=== PATIENT | female | born 1960 | race Caucasian/White ===

== ENCOUNTER 2017-01-16 09:54 | Inpatient (IN) | payer OTHER, MEDICARE ==
[2017-01-16 10:40] LABS: CHLORIDE,CL 94 mmol/L (98-115); SODIUM,NA 140 mmol/L (136-145)
[2017-01-16] MEDS ORDERED: Ondansetron 4 MG/2 ML SDV IVPUSH PRN (12:55)
[2017-01-16] MEDS ORDERED: Acetaminophen 325 MG Tab PO PRN (12:55)
[2017-01-16] MEDS ORDERED: Docusate Sodium 100 MG Cap PO PRN (12:55)
[2017-01-16] MEDS ORDERED: Sodium Chloride 0.9% 1,000 ML IV SCH ×2 (13:00→15:30)
[2017-01-16] MEDS ORDERED: Albuterol 8 GM Inhaler INH PRN (13:11)
[2017-01-16] MEDS ORDERED: Albuterol/Ipratropium 3.0-0.5 MG/3 ML Neb Soln INH PRN (13:11)
[2017-01-16] MEDS ORDERED: cefTRIAXone 1 GM in Sodium Chloride 0.9% 50 ML IV SCH (13:15)
[2017-01-16] MEDS ORDERED: prednisoLONE Acetate 1% Ophth Susp 5 ML Bottle EYEBOTH SCH (13:15)
[2017-01-16] MEDS ORDERED: Tobramycin 0.3% Ophth Drops 5 ML Bottle EYEBOTH SCH (13:15)
[2017-01-16] MEDS ORDERED: Azithromycin 500 MG in Sodium Chloride 0.9% 250 ML IV SCH (14:00)
[2017-01-16] MEDS: cefTRIAXone 1 GM Vial IVPUSH SCH (15:10)
[2017-01-16] MEDS: methylPREDNISolone Sodium Succinate 125 MG/2 ML SDV IVPUSH SCH ×4 (15:30→21:11)
[2017-01-16] MEDS: Albuterol/Ipratropium 3.0-0.5 MG/3 ML Neb Soln NEB SCH ×4 (15:32→22:37)
[2017-01-16] MEDS: Omeprazole 20 MG Cap.CR PO SCH (18:26)
[2017-01-16] MEDS: Multivitamins with Minerals/Iron/Folic Acid/Lycopene Tab PO SCH (18:26)
[2017-01-16] MEDS: metFORMIN 500 MG Tab PO SCH (18:26)
[2017-01-16] MEDS: Rosuvastatin 10 MG Tab PO SCH (20:35)
[2017-01-16] MEDS: SYMBICORT INH SCH (20:36)
[2017-01-16] MEDS: Potassium Chloride 20 MEQ Tab.ER PO SCH (20:36)
[2017-01-16] MEDS: Tiotropium Inhaler 18 MCG Inhalation Powder Cap Kit of 5 INH SCH (23:34)
[2017-01-17] MEDS: Melatonin 3 MG Tab PO PRN ×2 (00:37→22:42)
[2017-01-17] MEDS: methylPREDNISolone Sodium Succinate 125 MG/2 ML SDV IVPUSH SCH ×2 (03:23→08:44)
[2017-01-17] MEDS: Albuterol/Ipratropium 3.0-0.5 MG/3 ML Neb Soln NEB SCH ×5 (03:23→22:34)
[2017-01-17] MEDS: Levothyroxine 100 MCG Tab PO SCH (06:48)
[2017-01-17] MEDS: Omeprazole 20 MG Cap.CR PO SCH ×2 (06:48→18:19)
[2017-01-17] MEDS: Levothyroxine 25 MCG Tab PO SCH (06:49)
[2017-01-17 07:44] LABS: CHLORIDE,CL 98 mmol/L (98-115); SODIUM,NA 141 mmol/L (136-145)
[2017-01-17] MEDS: SYMBICORT INH SCH ×2 (08:36→21:26)
[2017-01-17] MEDS: [UNRECOGNIZED DRUG - OTHER] PO SCH (08:36)
[2017-01-17] MEDS: Potassium Chloride 20 MEQ Tab.ER PO SCH ×2 (08:38→21:24)
[2017-01-17] MEDS: Furosemide 20 MG Tab PO SCH (08:38)
[2017-01-17] MEDS: metFORMIN 500 MG Tab PO SCH ×2 (08:38→18:20)
[2017-01-17] MEDS: Cetirizine 10 MG Tab PO SCH (08:39)
[2017-01-17] MEDS: Vitamin B Complex Tab PO SCH (08:39)
[2017-01-17] MEDS ORDERED: Non-Formulary Medication 1 Each (Biotin [Biotin] 5,000 MCG) PO SCH (09:00)
[2017-01-17] MEDS ORDERED: Tiotropium Inhaler 18 MCG Inhalation Powder Cap Kit of 5 INH SCH (09:00)
--- NOTE | 2017-01-17 09:57 | PCM.DCSUM1 ---
Discharge Summary - Hospital Course HPI Initial Comments: 56 YO WF presented to ER with hypoxia. Pt was found to have a left upper lobe infiltrate consistant with pneumonia. Pt also had underlying CHF. Pt is O2 dependent and is usually on 2L of oxygen daily. Pt was weaned from 3L while in the hospital back to 2L yesterday and tolerated well. Pt was given IV rocephin/ vancomycin, duoneb treatment Q4 hours and lasix 20mg IV x 2 doses and has improved significantly. Pt was able to shower this am without difficulty and states she's feeling much better. Pt had her coumadin held x 1 day due to elevated INR-3.7 and is currently at 3.0. Coumadin will be restarted today. Pt had KCL 40MEQ replaced due to hypokalemia and today K- 3.7. Pt will be discharged on omnicef 300mg PO BID x 10 days and continue duoneb treatments Q6 hours and PRN. All her home medications will be restarted. Pt will return to [place] today for further management. - Discharge Data Discharge Date: 01/17/17 Discharge Disposition: Home, Self-Care 01 Condition: Good - Patient Summary/Data Consults: Consultations 01/16/17 12:55 Respiratory Care Assess and Treatment [CONS] Routine - Patient Instructions Diet: Low Sodium Fluid Restriction: 1500 mL Activity: As Tolerated Showering/Bathing: March Shower Notify Provider of: Fever - Discharge Plan Prescriptions/Med Rec: Cefdinir [Omnicef] 300 mg PO BID #20 cap Home Medications: Home Meds Albuterol Sulfate [Proair Hfa] 2 puff INH Q4H PRN 10/17/16 [History] Biotin 5,000 mcg PO DAILY 10/17/16 [History] Budesonide/Formoterol Fumarate [Symbicort 80-4.5 Mcg Inhaler] 2 puff INH BID 01/01 [History] Calcium Carbonate/Vitamin D3 [Calcium 600 + Vit D Tablet] 2 each PO BID [History] Cetirizine [ZyrTEC] 10 mg PO DAILY 10/17/16 [History] Folic Acid/Multivit-Min/Lutein [Centrum Silver Chewable Tablet] 2 each PO BID [History] Furosemide [Lasix] 20 mg PO DAILY 10/17/16 [History] Ipratropium/Albuterol Sulfate [Iprat-Albut 0.5-3(2.5) MG/3 ML] 1 vial INH Q4H PRN 10/17/16 [History] Levothyroxine 112 mcg PO ASDIRECTED 10/17/16 [History] Levothyroxine Sodium [Synthroid] 125 mcg PO ASDIRECTED 10/17/16 [History] MV,Ca,Min/FA/Herbal No.157 [Estroven Max Strength Caplet] 400 mcg PO DAILY 10/17 [History] Omeprazole 40 mg PO BID 10/17/16 [History] Potassium Chloride 1 tab PO BID 10/17/16 [History] Ranitidine [Zantac] 150 mg PO BEDTIME PRN 10/17/16 [History] Rosuvastatin Calcium 5 mg PO DAILY 10/17/16 [History] Tiotropium [Spiriva HandiHaler] 18 mcg INH DAILY 10/17/16 [History] Tobramycin 0.3% [Tobramycin 0.3% Ophth Soln] 1 drop EYEBOTH ASDIRECTED 10/17/16 [History] Vitamin B Complex 1 each PO BID 10/17/16 [History] metFORMIN HCl [Metformin HCl] 500 mg PO BID 10/17/16 [History] prednisoLONE Acetate [Pred Forte 1% Ophth Susp] 1 drop EYEBOTH ASDIRECTED [History] Tumeric 1 cap PO DAILY 01/16/17 [History] Cefdinir [Omnicef] 300 mg PO BID #20 cap 01/17/17 [Rx] Patient Handouts: Community-Acquired Pneumonia, Adult, Shortness of Breath, Heart Failure Referrals: Kristy Jones MD [Primary Care Provider] - - Discharge Summary/Plan Comment DC Time >30 min.: No Discharge Summary/Plan Comment: 1. CAP- omnicef 300mg PO BID x 10 days; duoneb treatments Q6 and PRN 2. CHF exacerbation- continue home lasix 3. hypoxemia- continue O2 at 2L 4. return to [place] today 5. follow up with Dr Rodriguez thursday01/23/2017 for further evaluation and treatment - Patient Data Vitals - Most Recent: Last Vital Signs Temp 36.6 C 01/17/17 05:57 Pulse 88 01/17/17 06:54 Resp 20 01/17/17 05:57 BP 110/66 01/17/17 05:57 Pulse Ox 94 L 01/17/17 06:54 Weight - Most Recent: 56.88 kg I&O - Last 24 hours: Intake & Output 01/16/17 01/17/17 01/17/17 22:59 06:59 14:59 Intake Total 1390 1011 Output Total 1500 1800 Balance -110 -789 Lab Results - Last 24 hrs: Laboratory Results - last 24 hr 01/16/17 01/16/17 01/16/17 Range/Units 10:10 10:10 17:59 WBC 16.4 H (5.0-10.0) 10^3/uL RBC 4.94 (3.80-5.50) 10^6/uL Hgb 13.3 (12.0-16.0) g/dL Hct 41.6 (37.0-47.0) % MCV 84.1 (82.0-92.0) fL MCH 26.9 L (27.0-31.0) pg MCHC 31.9 L (32.0-36.0) g/dL RDW 12.1 (11.5-14.5) % Plt Count 555 H (150-300) 10^3/uL MPV 7.3 L (7.4-10.4) fL Neut % (Auto) 80.2 H (50.0-70.0) % Lymph % (Auto) 13.6 L (20.0-40.0) % [place] % (Auto) 5.1 (2.0-8.0) % Eos % (Auto) 1.1 (1.0-3.0) % Baso % (Auto) 0.0 (0.0-1.0) % Neut # 13.2 H (2.5-7.0) 10^3/uL Lymph # 2.2 (1.0-4.0) 10^3/uL [place] # 0.8 (0.1-0.8) 10^3/uL Eos # 0.2 (0.1-0.3) 10^3/uL Baso # 0.0 (0.0-0.1) 10^3/uL Sodium 140 (136-145) mmol/L Potassium 4.9 (3.3-5.3) mmol/L Chloride 94 L (98-115) mmol/L Carbon Dioxide 46.4 H (21.0-32.0) mmol/L BUN 16 (6-25) mg/dL Creatinine 0.58 (0.51-1.17) mg/dL Est Cr Clr Drug Dosing 98.97 mL/min Estimated GFR (MDRD) > 60 mL/min Glucose 185 H (70-110) mg/dL POC Glucose 146 H (74-106) mg/dl Calcium 9.7 (8.7-10.3) mg/dL B-Natriuretic Peptide 8 (0-100) pg/mL 01/17/17 01/17/17 01/17/17 Range/Units 06:46 07:15 07:15 WBC 8.3 (5.0-10.0) 10^3/uL RBC 4.56 (3.80-5.50) 10^6/uL Hgb 12.5 (12.0-16.0) g/dL Hct 38.5 (37.0-47.0) % MCV 84.5 (82.0-92.0) fL MCH 27.4 (27.0-31.0) pg MCHC 32.4 (32.0-36.0) g/dL RDW 12.5 (11.5-14.5) % Plt Count 457 H (150-300) 10^3/uL MPV 7.2 L (7.4-10.4) fL Neut % (Auto) 89.0 H (50.0-70.0) % Lymph % (Auto) 9.1 L (20.0-40.0) % [place] % (Auto) 0.9 L (2.0-8.0) % Eos % (Auto) 0.2 L (1.0-3.0) % Baso % (Auto) 0.8 (0.0-1.0) % Neut # 7.3 H (2.5-7.0) 10^3/uL Lymph # 0.8 L (1.0-4.0) 10^3/uL [place] # 0.1 (0.1-0.8) 10^3/uL Eos # 0.0 L (0.1-0.3) 10^3/uL Baso # 0.1 (0.0-0.1) 10^3/uL Sodium 141 (136-145) mmol/L Potassium 4.3 (3.3-5.3) mmol/L Chloride 98 (98-115) mmol/L Carbon Dioxide 43.1 H (21.0-32.0) mmol/L BUN 13 (6-25) mg/dL Creatinine 0.47 L (0.51-1.17) mg/dL Est Cr Clr Drug Dosing 117.16 mL/min Estimated GFR (MDRD) > 60 mL/min Glucose 175 H (70-110) mg/dL POC Glucose 163 H (74-106) mg/dl Calcium 9.0 (8.7-10.3) mg/dL B-Natriuretic Peptide (0-100) pg/mL DENISE Results - Last 24 hrs: Microbiology 01/16/17 14:45 Gram Stain - Final Sputum - Expectorated Med Orders - Current: Current Medications Acetaminophen (Tylenol) 650 mg PO Q4H PRN PRN Reason: Pain (Mild 1-3)/fever Albuterol (Ventolin Hfa) 0 gm INH Q4H PRN PRN Reason: Shortness of Breath Albuterol/Ipratropium (Duoneb 3.0-0.5 Mg/3 Ml) 3 ml NEB Q4HR ON LICENSE OF [facility] Last Admin: 01/17/17 06:50 Dose: 3 ml Calcium Citrate (Calcium Citrate + D) 2 tab PO DAILY@1200 HARPAL Ceftriaxone Sodium (Rocephin) 1 gm IVPUSH Q24H ON [facility] OF [facility] Last Admin: 01/16/17 15:10 Dose: 1 gm Cetirizine HCl (Zyrtec) 10 mg PO DAILY ON [facility] Last Admin: 01/17/17 08:39 Dose: 10 mg Furosemide (Lasix) 20 mg PO DAILY ON [facility] Last Admin: 01/17/17 08:38 Dose: 20 mg Azithromycin 500 mg/ Sodium (Chloride) 250 mls @ 250 mls/hr IV Q24H ON [facility] OF [facility] Last Admin: 01/16/17 15:33 Dose: 250 mls/hr Sodium Chloride (Normal Saline) 1,000 mls @ 50 mls/hr IV ASDIRECTED ON LICENSE OF [facility] Last Admin: 01/16/17 15:31 Dose: 50 mls/hr Levothyroxine Sodium (Synthroid) 100 mcg PO SuSa@0700 ON [facility] OF [facility] Last Admin: 01/17/17 06:48 Dose: 100 mcg Levothyroxine Sodium (Levothyroxine) 112 mcg PO MoTuWeThFr@0700 ON [facility] Levothyroxine Sodium (Levothyroxine) 25 mcg PO SuSa@0700 ON [facility] Last Admin: 01/17/17 06:49 Dose: 25 mcg Melatonin (Melatonin) 6 mg PO BEDTIME PRN PRN Reason: Insomnia Last Admin: 01/17/17 00:37 Dose: 6 mg Metformin HCl (Glucophage) 500 mg PO BIDMEALS ON [facility] Last Admin: 01/17/17 08:38 Dose: 500 mg Multivitamins/Minerals (Centrum) 1 tab PO BID@1200,1800 ON [facility] Last Admin: 01/16/17 18:26 Dose: 1 tab Omeprazole (Omeprazole) 40 mg PO BIDAC ON [facility] OF [facility] Last Admin: 01/17/17 06:48 Dose: 40 mg Ondansetron HCl (Zofran) 4 mg IVPUSH Q6H PRN PRN Reason: Nausea/Vomiting Ptom Symbicort (160/4.5mcg Hfa) 0 each INH BID ON [facility] OF [facility] Last Admin: 01/17/17 08:36 Dose: 2 each Ptom Estroven (Max Strength Tablet) 1 each PO DAILY ON [facility] OF [facility] Last Admin: 01/17/17 08:36 Dose: 1 each Potassium Chloride (Klor-Con M20) 20 meq PO BID ON [facility] OF [facility] Last Admin: 01/17/17 08:38 Dose: 20 meq Ranitidine HCl (Zantac) 150 mg PO BEDTIME PRN PRN Reason: dyspepsia Rosuvastatin Calcium (Crestor) 5 mg PO BEDTIME ON [facility] Last Admin: 01/16/17 20:35 Dose: 5 mg Tiotropium [employer] (Spiriva Handihaler) 18 mcg INH 1600 ON [facility] Last Admin: 01/16/17 23:34 Dose: 1 inhalation Vitamin B Complex (Vitamin B Complex) 1 each PO DAILY ON [facility] Last Admin: 01/17/17 08:39 Dose: 1 each Discontinued Medications Albuterol/Ipratropium (Duoneb 3.0-0.5 Mg/3 Ml) 3 ml NEB Q4HRRT ON [facility] OF [facility] Last Admin: 01/16/17 19:27 Dose: Not Given Sodium Chloride (Normal Saline) 1,000 mls @ 50 mls/hr IV .BOLUS [facility]ARPAL Last Admin: 01/16/17 15:31 Dose: 50 mls/hr Methylprednisolone Sodium Succinate (Solu-Medrol) 125 mg IVPUSH Q6HR [facility] Stop: 01/17/17 05:01 Last Admin: 01/16/17 19:28 Dose: Not Given Methylprednisolone Sodium Succinate (Solu-Medrol) 125 mg IVPUSH 1500,2100,0300, 0900 [facility] Stop: 01/17/17 09:01 Last Admin: 01/17/17 08:44 Dose: 125 mg Tiotropium [employer] (Spiriva Handihaler) 18 mcg INH DAILY HARPAL *Q Meaningful Use (DIS) - VTE *Q VTE Criteria *Q: - Stroke *Q Stroke Criteria *Q: - AMI *Q AMI Criteria *Q:
[2017-01-17] MEDS ORDERED: Sodium Chloride 0.9% 5 ML Syringe FLUSH PRN (11:16)
[2017-01-17] MEDS: Azithromycin 250 MG Tab PO SCH (11:45)
[2017-01-17] MEDS: Calcium Citrate/Vitamin D3 315 MG-250 Unit Tab PO SCH (11:46)
[2017-01-17] MEDS: Multivitamins with Minerals/Iron/Folic Acid/Lycopene Tab PO SCH ×2 (11:46→18:19)
[2017-01-17] MEDS: cefTRIAXone 1 GM Vial IVPUSH SCH (14:08)
[2017-01-17] MEDS: Tiotropium Inhaler 18 MCG Inhalation Powder Cap Kit of 5 INH SCH (16:14)
[2017-01-17] MEDS ORDERED: Loperamide 2 MG Cap PO PRN (16:34)
[2017-01-17] MEDS: Rosuvastatin 10 MG Tab PO SCH (21:25)
[2017-01-18] MEDS: Albuterol/Ipratropium 3.0-0.5 MG/3 ML Neb Soln NEB SCH ×2 (04:28→10:57)
[2017-01-18] MEDS: Levothyroxine 25 MCG Tab PO SCH (06:23)
[2017-01-18] MEDS: Omeprazole 20 MG Cap.CR PO SCH (06:23)
[2017-01-18] MEDS: Levothyroxine 100 MCG Tab PO SCH (06:23)
[2017-01-18 06:27] VITALS: BP 121/67
--- NOTE | 2017-01-18 07:46 | PCM.DCSUM1 ---
Discharge Summary - Discharge Data Discharge Date: 01/18/17 Discharge Disposition: Home, Self-Care 01 Condition: Good - Patient Summary/Data Consults: Consultations 01/16/17 12:55 Respiratory Care Assess and Treatment [CONS] Routine Hospital Course: During hospital stay patient received duoneb treatments Q4 hours and PRN, solumedrol 125mg IV x 4 doses, rocephin and zithromax and supplemental O2. Pt states she is feeling much better today and is ready to be discharged home. Pt able to tolerate all her ADL's. Pt sitting up in a chair after showering in NAD. Pt will be discharged home on duoneb Q4 and prednisone 60mg po QD x 5 days. Pt was given zithromax 500mg QD x 3 days and antibiltics will be D/C'ed on discharge. - Patient Instructions Diet: Low Sodium Fluid Restriction: 1500 mL Activity: As Tolerated Driving: May Drive Today Showering/Bathing: May Shower Notify Provider of: Fever - Discharge Plan Prescriptions/Med Rec: Albuterol/Ipratropium [DuoNeb 3.0-0.5 MG/3 ML] 3 ml NEB Q4HRRT #30 neb Prednisone [IMW: predniSONE] 20 mg PO WITHBREAKFAST #15 tab Home Medications: Home Meds Albuterol Sulfate [Proair Hfa] 2 puff INH Q4H PRN 10/17/16 [History] Biotin 5,000 mcg PO DAILY 10/17/16 [History] Budesonide/Formoterol Fumarate [Symbicort 80-4.5 Mcg Inhaler] 2 puff INH BID 01/01 [History] Calcium Carbonate/Vitamin D3 [Calcium 600 + Vit D Tablet] 2 each PO BID [History] Cetirizine [ZyrTEC] 10 mg PO DAILY 10/17/16 [History] Folic Acid/Multivit-Min/Lutein [Centrum Silver Chewable Tablet] 2 each PO BID [History] Furosemide [Lasix] 20 mg PO DAILY 10/17/16 [History] Ipratropium/Albuterol Sulfate [Iprat-Albut 0.5-3(2.5) MG/3 ML] 1 vial INH Q4H PRN 10/17/16 [History] Levothyroxine 112 mcg PO ASDIRECTED 10/17/16 [History] Levothyroxine Sodium [Synthroid] 125 mcg PO ASDIRECTED 10/17/16 [History] MV,Ca,Min/FA/Herbal No.157 [Estroven Max Strength Caplet] 400 mcg PO DAILY 10/17 [History] Omeprazole 40 mg PO BID 10/17/16 [History] Potassium Chloride 1 tab PO BID 10/17/16 [History] Ranitidine [Zantac] 150 mg PO BEDTIME PRN 10/17/16 [History] Rosuvastatin Calcium 5 mg PO DAILY 10/17/16 [History] Tiotropium [Spiriva HandiHaler] 18 mcg INH DAILY 10/17/16 [History] Tobramycin 0.3% [Tobramycin 0.3% Ophth Soln] 1 drop EYEBOTH ASDIRECTED 10/17/16 [History] Vitamin B Complex 1 each PO BID 10/17/16 [History] metFORMIN HCl [Metformin HCl] 500 mg PO BID 10/17/16 [History] prednisoLONE Acetate [Pred Forte 1% Ophth Susp] 1 drop EYEBOTH ASDIRECTED [History] Tumeric 1 cap PO DAILY 01/16/17 [History] Albuterol/Ipratropium [DuoNeb 3.0-0.5 MG/3 ML] 3 ml NEB Q4HRRT #30 neb 01/18/17 [Rx] Prednisone [IMW: predniSONE] 20 mg PO WITHBREAKFAST #15 tab 01/18/17 [Rx] Patient Handouts: Shortness of Breath, Heart Failure, Community-Acquired Pneumonia, Adult Referrals: Kristy Jones MD [Primary Care Provider] - - Discharge Summary/Plan Comment DC Time >30 min.: No Discharge Summary/Plan Comment: 1. continue duoneb treatments Q4 hours and PRN 2. prednisone 60mg PO QD x 5 days 3. continue O2 at 2L 4. follow up with Dr Rodriguez 01/23/2017 5. return to ER for worsening symptoms - General Info Date of Service: 01/18/17 Admission Dx/Problem (Free Text: 56 YO WF who is oxygen dependent on 2L daily presented to clinic 2 days ago complaining of worsening shortness of breath. Pt was found to have SaO2 in the 80's on 2L. Pt was admitted to hospital for COPD exacerbation Subjective Update: Pt states she is feeling much better. Pt states she feels back to her normal baseline respiratory status and would like to go home. Functional Status: Reports: pain controlled, tolerating diet, ambulating, urinating, incentive spirometry - Review of Systems General: Reports: no symptoms HEENT: Reports: no symptoms Pulmonary: Reports: shortness of breath Cardiovascular: Reports: no symptoms Gastrointestinal: Reports: No symptoms Genitourinary: Reports: no symptoms Musculoskeletal: Reports: no symptoms Skin: Reports: no symptoms Neurological: Reports: no symptoms Psychiatric: Reports: no symptoms - Patient Data Vitals - Most Recent: Last Vital Signs Temp 36.4 C 01/18/17 06:26 Pulse 80 01/18/17 06:26 Resp 20 01/18/17 06:26 BP 121/67 01/18/17 06:26 Pulse Ox 98 01/18/17 06:26 Weight - Most Recent: 56.88 kg I&O - Last 24 hours: Intake & Output 01/17/17 01/18/17 01/18/17 22:59 06:59 14:59 Intake Total 1040 750 Output Total 1550 Balance 1040 -800 Lab Results - Last 24 hrs: Laboratory Results - last 24 hr 01/17/17 01/17/17 01/18/17 Range/Units 07:15 17:25 06:44 Sodium 141 (136-145) mmol/L Potassium 4.3 (3.3-5.3) mmol/L Chloride 98 (98-115) mmol/L Carbon Dioxide 43.1 H (21.0-32.0) mmol/L BUN 13 (6-25) mg/dL Creatinine 0.47 L (0.51-1.17) mg/dL Est Cr Clr Drug Dosing 117.16 mL/min Estimated GFR (MDRD) > 60 mL/min Glucose 175 H (70-110) mg/dL POC Glucose 151 H 146 H (74-106) mg/dl Calcium 9.0 (8.7-10.3) mg/dL DENISE Results - Last 24 hrs: Microbiology 01/16/17 14:00 Aerobic Blood Culture - Preliminary Blood - Venous - Lab Draw NO GROWTH AFTER 1 DAY Anaerobic Blood Culture - Preliminary NO GROWTH AFTER 1 DAY 01/16/17 13:45 Aerobic Blood Culture - Preliminary Blood - Venous NO GROWTH AFTER 1 DAY Anaerobic Blood Culture - Preliminary NO GROWTH AFTER 1 DAY 01/16/17 14:45 Gram Stain - Final Sputum - Expectorated Sputum Culture - Preliminary Med Orders - Current: Current Medications Acetaminophen (Tylenol) 650 mg PO Q4H PRN PRN Reason: Pain (Mild 1-3)/fever Albuterol (Ventolin Hfa) 0 gm INH Q4H PRN PRN Reason: Shortness of Breath Albuterol/Ipratropium (Duoneb 3.0-0.5 Mg/3 Ml) 3 ml NEB Q6HRRT [facility] Last Admin: 01/18/17 04:28 Dose: 3 ml Azithromycin (Zithromax) 500 mg PO DAILY [facility] Stop: 01/18/17 09:01 Last Admin: 01/17/17 11:45 Dose: 500 mg Calcium Citrate (Calcium Citrate + D) 2 tab PO DAILY@1200 [facility] Last Admin: 01/17/17 11:46 Dose: 2 tab Ceftriaxone Sodium (Rocephin) 1 gm IVPUSH Q24H [facility] Last Admin: 01/17/17 14:08 Dose: 1 gm Cetirizine HCl (Zyrtec) 10 mg PO DAILY [facility] Last Admin: 01/17/17 08:39 Dose: 10 mg Furosemide (Lasix) 20 mg PO DAILY [facility] Last Admin: 01/17/17 08:38 Dose: 20 mg Levothyroxine Sodium (Synthroid) 100 mcg PO SuSa@0700 [facility] Last Admin: 01/18/17 06:23 Dose: 100 mcg Levothyroxine Sodium (Levothyroxine) 112 mcg PO MoTuWeThFr@0700 [facility] Levothyroxine Sodium (Levothyroxine) 25 mcg PO SuSa@0700 [facility] Last Admin: 01/18/17 06:23 Dose: 25 mcg Loperamide HCl (Imodium) 2 mg PO ASDIRECTED PRN PRN Reason: Diarrhea Last Admin: 01/17/17 17:12 Dose: 2 mg Melatonin (Melatonin) 6 mg PO BEDTIME PRN PRN Reason: Insomnia Last Admin: 01/17/17 22:42 Dose: 6 mg Metformin HCl (Glucophage) 500 mg PO BIDMEALS [facility] Last Admin: 01/17/17 18:20 Dose: 500 mg Multivitamins/Minerals (Centrum) 1 tab PO BID@1200,1800 [facility] Last Admin: 01/17/17 18:19 Dose: 1 tab Omeprazole (Omeprazole) 40 mg PO BIDAC [facility] Last Admin: 01/18/17 06:23 Dose: 40 mg Ondansetron HCl (Zofran) 4 mg IVPUSH Q6H PRN PRN Reason: Nausea/Vomiting Ptom Symbicort (160/4.5mcg Hfa) 0 each INH BID [facility] Last Admin: 01/17/17 21:26 Dose: 2 each Ptom Estroven (Max Strength Tablet) 1 each PO DAILY [facility] Last Admin: 01/17/17 08:36 Dose: 1 each Potassium Chloride (Klor-Con M20) 20 meq PO BID [facility] Last Admin: 01/17/17 21:24 Dose: 20 meq Ranitidine HCl (Zantac) 150 mg PO BEDTIME PRN PRN Reason: dyspepsia Rosuvastatin Calcium (Crestor) 5 mg PO BEDTIME [facility] Last Admin: 01/17/17 21:25 Dose: 5 mg Sodium Chloride (Syrex Flush) 5 ml FLUSH Q8HR PRN PRN Reason: keep line open Last Admin: 01/17/17 14:08 Dose: 5 ml Tiotropium [place] (Spiriva Handihaler) 18 mcg INH 1600 [facility] Last Admin: 01/17/17 16:14 Dose: 1 inhalation Vitamin B Complex (Vitamin B Complex) 1 each PO DAILY [facility] Last Admin: 01/17/17 08:39 Dose: 1 each Discontinued Medications Albuterol/Ipratropium (Duoneb 3.0-0.5 Mg/3 Ml) 3 ml NEB Q4HRRT [facility] Last Admin: 01/16/17 19:27 Dose: Not Given Albuterol/Ipratropium (Duoneb 3.0-0.5 Mg/3 Ml) 3 ml NEB Q4HR [facility] Last Admin: 01/17/17 11:09 Dose: 3 ml Azithromycin 500 mg/ Sodium (Chloride) 250 mls @ 250 mls/hr IV Q24H [facility] Last Admin: 01/16/17 15:33 Dose: 250 mls/hr Sodium Chloride (Normal Saline) 1,000 mls @ 50 mls/hr IV .BOLUS [facility] Last Admin: 01/16/17 15:31 Dose: 50 mls/hr Sodium Chloride (Normal Saline) 1,000 mls @ 50 mls/hr IV ASDIRECTED [facility] Last Admin: 01/16/17 15:31 Dose: 50 mls/hr Methylprednisolone Sodium Succinate (Solu-Medrol) 125 mg IVPUSH Q6HR [facility] Stop: 01/17/17 05:01 Last Admin: 01/16/17 19:28 Dose: Not Given Methylprednisolone Sodium Succinate (Solu-Medrol) 125 mg IVPUSH 1500,2100,0300, 0900 [facility] Stop: 01/17/17 09:01 Last Admin: 01/17/17 08:44 Dose: 125 mg Tiotropium [place] (Spiriva Handihaler) 18 mcg INH DAILY HARPAL - Exam Quality Assessment: Reports: supplemental oxygen General: Reports: alert, oriented HEENT: Reports: Pupils equal, Pupils reactive, EOMI, Mucous membr. moist/pink Neck: Reports: supple Lungs: Reports: Clear to auscultation, Normal respiratory effort Cardiovascular: Reports: regular rate, regular rhythm Abdomen: Reports: bowel sounds present, soft, no tenderness, no distension Back Exam: Reports: normal inspection, full range of motion Extremities: Reports: no edema, normal pulses Skin: Reports: warm, dry, intact Neurological: Reports: no new focal deficit Psy/Mental Status: Reports: alert, normal affect, normal mood *Q Meaningful Use (DIS) - VTE *Q VTE Criteria *Q: - Stroke *Q Stroke Criteria *Q: - AMI *Q AMI Criteria *Q:
[2017-01-18] MEDS ORDERED: methylPREDNISolone Sodium Succinate 125 MG/2 ML SDV IVPUSH ONE (08:13)
[2017-01-18] MEDS: Azithromycin 250 MG Tab PO SCH (09:17)
[2017-01-18] MEDS: SYMBICORT INH SCH (09:17)
[2017-01-18] MEDS: [UNRECOGNIZED DRUG - OTHER] PO SCH (09:18)
[2017-01-18] MEDS: metFORMIN 500 MG Tab PO SCH (09:18)
[2017-01-18] MEDS: Furosemide 20 MG Tab PO SCH (09:19)
[2017-01-18] MEDS: Vitamin B Complex Tab PO SCH (09:19)
[2017-01-18] MEDS: Potassium Chloride 20 MEQ Tab.ER PO SCH (09:19)
[2017-01-18] MEDS: Cetirizine 10 MG Tab PO SCH (09:20)
[2017-01-18] MEDS: Calcium Citrate/Vitamin D3 315 MG-250 Unit Tab PO SCH (10:59)
[2017-01-18] MEDS: Multivitamins with Minerals/Iron/Folic Acid/Lycopene Tab PO SCH (10:59)
[2017-01-18] MEDS: cefTRIAXone 1 GM Vial IVPUSH SCH (11:00)
[2017-01-19] MEDS ORDERED: Levothyroxine 112 MCG Tab PO SCH (07:00)
--- NOTE | 2017-01-19 11:10 | HP ---
CLINICAL NOTE AND H AND P ADMISSION REASON FOR VISIT: Worsening shortness of breath and productive cough despite oral prednisone and antibiotics for one week. HISTORY OF PRESENT ILLNESS: Ms Thurman is a very pleasant female with a long history of COPD with recent exacerbation of her symptoms approximately two weeks ago. She is on chronic O2 at home on typically 2 L. She was seen by Dr. Kristy Rodriguez approximately one week ago and was started on oral prednisone 60 mg and a Z-Ramses for exacerbation of her COPD with bronchitis. She reports she has had a little improvement of her symptoms with continuation of chronic productive cough and shortness of breath. Upon her visit today, she was on 2 L of O2 and O2 saturations were 80%. She denies any significant fever or chills. No nausea or vomiting. No diarrhea. No abdominal complaints. She denies significant edema in her lower extremities. She denies current sore throat. She is exceptionally short of breath with exertion. ACTIVE PROBLEMS: 1. Allergic rhinitis. 2. Bronchitis. 3. COPD. 4. COPD exacerbation. 5. Diabetes mellitus type 2. 6. Gastroesophageal reflux disease. 7. Hyperlipidemia. 8. Hypothyroidism. 9. Osteoporosis. PAST MEDICAL HISTORY: 1. History of Bartholin cyst. 2. History of acute sinusitis. 3. History of atopic dermatitis. 4. History of hypokalemia. 5. History of upper respiratory infection. PAST SURGICAL HISTORY: 1. History of biopsy breast, percutaneous needle core. 2. History of bypass graft, nonvein. 3. History of knee arthroscopy with lateral meniscus repair. 4. History of tonsillectomy. MEDICATIONS: 1. Biotin 5000 mcg orally one capsule p.o. daily. 2. Calcium 600+ D tablet three tablets daily. 3. Centrum oral tablet chewable, chew and swallow two tablets daily. 4. Estroven Maximum Strength tablets take one tablet daily. 5. Furosemide 20 mg p.o. daily. 6. Ipratropium and albuterol 0.5 and 2.5 mg per 3 mL inhalation solution nebulized one every 4 hours as needed. 7. Levothyroxine sodium 112 mcg one tablet p.o. Thursday through Thursday. 8. Levothyroxine sodium 125 mcg oral tablet one tablet by mouth daily as directed on Thursday and Thursday. 9. Metformin HCl 500 mg oral tablet, take one tablet two times a day with food. 10.Nebulizer compressor miscellaneous use as directed. 11.Omeprazole 40 mg oral capsule delayed release one capsule twice daily. 12.Potassium chloride ER 20 mEq tablet double extended-release two tablets p.o. daily. 13.ProAir HFA 108 (90 base mcg/ACT inhalation aerosol solution inhaled two puffs every 4 hours as needed). 14.Ranitidine 150 mg oral tablet, one tablet by mouth daily. 15.Spiriva 18 mcg inhalation capsule inhale contents of one capsule once daily. 16.Symbicort 160/4.5 mcg/ACT inhalation aerosol inhaled two puffs twice daily, rinse mouth after each use. 17.Vitamin B complex oral tablet one tablet twice daily. 18.Zyrtec Allergy 10 mg oral capsule one tablet daily. ALLERGIES: Codeine, derivatives, Levaquin, penicillin, and eggs. FAMILY HISTORY: Mother: Family history of hypertension, family history of malignant neoplasm of the uterus. Father: History of colon cancer, history of diabetes mellitus, hypertension. Sister: History of anemia, history of congestive heart failure, history of malignant neoplasm of the uterus. Brother: History of colon cancer and hypertension. Maternal grandmother: History of hypertension, multiple myeloma, and osteoarthritis. Paternal grandmother: History of malignant neoplasm of the breast. Maternal grandfather: History of cerebrovascular accident, history hypertension, history of myocardial infarction. Paternal grandfather: History of myocardial infarction. SOCIAL HISTORY: Disability and former smoker. REVIEW OF SYSTEMS: Complete review of systems revealed and pertinent complaints are dictated in her history of present illness. PHYSICAL EXAMINATION: VITAL SIGNS: Temperature is 98, pulse is 105, respirations 24, blood pressure is 148/76, O2 saturation is 80% on 2 L of nasal cannula oxygen. The patient when placed on 3 L nasal cannula, O2 saturation was 93%. Height is 5 feet 6 inches, weight 126 pounds. GENERAL: This is a middle-aged female, who is thin appearing. She has O2 nasal cannula currently with supplemental oxygen at 2 L. She does have noticeable shortness of breath with a productive cough. HEENT: Head is normocephalic. Pupils are equal, round, and reactive to light. There is no conjunctivitis. Throat is clear without erythema. She has a good oral hygiene. Trachea is midline. There is no erythema, edema, or exudate in oropharynx. NECK: Supple and symmetric. Trachea is midline. No masses. Thyroid reveals no thyromegaly or mass. PULMONARY: The patient is having moderate respiratory effort with O2 nasal cannula for supplement. Her lungs are significantly diminished throughout. I do not hear any crackles or wheezing. CARDIOVASCULAR: Heart is slightly tachycardic. Rhythm is normal without evidence of murmur. ABDOMEN: Soft and nontender. EXTREMITIES: Reveal no significant pitting edema. IMPRESSION: Chronic obstructive pulmonary disease exacerbation with acute bronchitis and has failed outpatient oral antibiotics with prednisone nebulizer treatments. PLAN: We will admit the patient inpatient admission at [facility]. I am going to begin her on IV azithromycin 500 mg daily. Also going to add Rocephin 1 g IV q.24 hours. We will begin her on DuoNeb treatment every 6 hours. I am going to begin her also on methylprednisolone IV 125 mg q.6 hours. We will redraw her labs tomorrow. We will keep her O2 saturations above 90% and titrating oxygen as needed to achieve this. The patient is incompliance and is willing to proceed with hospital admission. /[id number]/MODL
--- NOTE | 2017-01-20 06:29 | PCM.PN ---
- General Info Date of Service: 01/17/17 Subjective Update: Pt states she is feeling much better today and tolerating her ADL's without difficulty. Pt states she still feels "winded" but is improving. Pt denies any other complaints at this time. Functional Status: Reports: pain controlled, tolerating diet, ambulating, urinating, incentive spirometry Pain Score: 0 - Review of Systems General: Reports: no symptoms HEENT: Reports: no symptoms Pulmonary: Reports: shortness of breath, wheezing Cardiovascular: Reports: no symptoms Gastrointestinal: Reports: No symptoms Genitourinary: Reports: no symptoms Musculoskeletal: Reports: no symptoms Skin: Reports: no symptoms Neurological: Reports: no symptoms Psychiatric: Reports: no symptoms - Patient Data Vitals - most recent: Last Vital Signs Temp 36.4 C 01/18/17 06:26 Pulse 80 01/18/17 06:26 Resp 20 01/18/17 06:26 BP 121/67 01/18/17 06:26 Pulse Ox 96 01/18/17 09:00 Weight - most recent: 56.88 kg Felipe Results last 24 hrs: Microbiology 01/16/17 14:00 Aerobic Blood Culture - Preliminary Blood - Venous - Lab Draw NO GROWTH AFTER 3 DAYS Anaerobic Blood Culture - Preliminary NO GROWTH AFTER 3 DAYS 01/16/17 13:45 Aerobic Blood Culture - Preliminary Blood - Venous NO GROWTH AFTER 3 DAYS Anaerobic Blood Culture - Preliminary NO GROWTH AFTER 3 DAYS 01/16/17 14:45 Gram Stain - Final Sputum - Expectorated Sputum Culture - Final Klebsiella Pneumoniae Enterobacter Cloacae Med Orders - Current: Current Medications Discontinued Medications Acetaminophen (Tylenol) 650 mg PO Q4H PRN PRN Reason: Pain (Mild 1-3)/fever Albuterol (Ventolin Hfa) 0 gm INH Q4H PRN PRN Reason: Shortness of Breath Albuterol/Ipratropium (Duoneb 3.0-0.5 Mg/3 Ml) 3 ml NEB Q4HRRT [facility] Last Admin: 01/16/17 19:27 Dose: Not Given Albuterol/Ipratropium (Duoneb 3.0-0.5 Mg/3 Ml) 3 ml NEB Q4HR [facility] Last Admin: 01/17/17 11:09 Dose: 3 ml Albuterol/Ipratropium (Duoneb 3.0-0.5 Mg/3 Ml) 3 ml NEB Q6HRRT [facility] Last Admin: 01/18/17 10:57 Dose: 3 ml Azithromycin (Zithromax) 500 mg PO DAILY [facility] Stop: 01/18/17 09:01 Last Admin: 01/18/17 09:17 Dose: 500 mg Calcium Citrate (Calcium Citrate + D) 2 tab PO DAILY@1200 [facility] Last Admin: 01/18/17 10:59 Dose: 2 tab Ceftriaxone Sodium (Rocephin) 1 gm IVPUSH Q24H [facility] Last Admin: 01/18/17 11:00 Dose: 1 gm Cetirizine HCl (Zyrtec) 10 mg PO DAILY [facility] Last Admin: 01/18/17 09:20 Dose: 10 mg Furosemide (Lasix) 20 mg PO DAILY [facility] Last Admin: 01/18/17 09:19 Dose: 20 mg Azithromycin 500 mg/ Sodium (Chloride) 250 mls @ 250 mls/hr IV Q24H [facility] Last Admin: 01/16/17 15:33 Dose: 250 mls/hr Sodium Chloride (Normal Saline) 1,000 mls @ 50 mls/hr IV .BOLUS [facility] Last Admin: 01/16/17 15:31 Dose: 50 mls/hr Sodium Chloride (Normal Saline) 1,000 mls @ 50 mls/hr IV ASDIRECTED [facility] Last Admin: 01/16/17 15:31 Dose: 50 mls/hr Levothyroxine Sodium (Synthroid) 100 mcg PO SuSa@0700 [facility] Last Admin: 01/18/17 06:23 Dose: 100 mcg Levothyroxine Sodium (Levothyroxine) 112 mcg PO MoTuWeThFr@0700 [facility] Levothyroxine Sodium (Levothyroxine) 25 mcg PO SuSa@0700 [facility] Last Admin: 01/18/17 06:23 Dose: 25 mcg Loperamide HCl (Imodium) 2 mg PO ASDIRECTED PRN PRN Reason: Diarrhea Last Admin: 01/17/17 17:12 Dose: 2 mg Melatonin (Melatonin) 6 mg PO BEDTIME PRN PRN Reason: Insomnia Last Admin: 01/17/17 22:42 Dose: 6 mg Metformin HCl (Glucophage) 500 mg PO BIDMEALS [facility] Last Admin: 01/18/17 09:18 Dose: 500 mg Methylprednisolone Sodium Succinate (Solu-Medrol) 125 mg IVPUSH Q6HR [facility] Stop: 01/17/17 05:01 Last Admin: 01/16/17 19:28 Dose: Not Given Methylprednisolone Sodium Succinate (Solu-Medrol) 125 mg IVPUSH 1500,2100,0300, 0900 [facility] Stop: 01/17/17 09:01 Last Admin: 01/17/17 08:44 Dose: 125 mg Methylprednisolone Sodium Succinate (Solu-Medrol) 125 mg IVPUSH ONETIME ONE Stop: 01/18/17 08:14 Last Admin: 01/18/17 09:26 Dose: 125 mg Multivitamins/Minerals (Centrum) 1 tab PO BID@1200,1800 [facility] Last Admin: 01/18/17 10:59 Dose: 1 tab Omeprazole (Omeprazole) 40 mg PO BIDAC [facility] Last Admin: 01/18/17 06:23 Dose: 40 mg Ondansetron HCl (Zofran) 4 mg IVPUSH Q6H PRN PRN Reason: Nausea/Vomiting Ptom Symbicort (160/4.5mcg Hfa) 0 each INH BID [facility] Last Admin: 01/18/17 09:17 Dose: 2 each Ptom Estroven (Max Strength Tablet) 1 each PO DAILY [facility] Last Admin: 01/18/17 09:18 Dose: 1 each Potassium Chloride (Klor-Con M20) 20 meq PO BID [facility] Last Admin: 01/18/17 09:19 Dose: 20 meq Ranitidine HCl (Zantac) 150 mg PO BEDTIME PRN PRN Reason: dyspepsia Rosuvastatin Calcium (Crestor) 5 mg PO BEDTIME [facility] Last Admin: 01/17/17 21:25 Dose: 5 mg Sodium Chloride (Syrex Flush) 5 ml FLUSH Q8HR PRN PRN Reason: keep line open Last Admin: 01/17/17 14:08 Dose: 5 ml Tiotropium [place] (Spiriva Handihaler) 18 mcg INH DAILY [facility] Tiotropium [place] (Spiriva Handihaler) 18 mcg INH 1600 [facility] Last Admin: 01/17/17 16:14 Dose: 1 inhalation Vitamin B Complex (Vitamin B Complex) 1 each PO DAILY [facility] Last Admin: 01/18/17 09:19 Dose: 1 each - Exam Quality Assessment: supplemental oxygen General: alert, oriented HEENT: Pupils equal, Pupils reactive, EOMI, Mucous membr. moist/pink Neck: supple Lungs: Normal respiratory effort, Wheezing Cardiovascular: regular rate, regular rhythm Abdomen: bowel sounds present, soft, no tenderness, no distension Back Exam: normal inspection, full range of motion Extremities: no edema Skin: warm, dry, intact Neurological: no new focal deficit Psy/Mental Status: alert, normal affect, normal mood - Problem List & Annotations (1) COPD with exacerbation SNOMED Code(s): 313249847, 259504439 Code(s): J44.1 - CHRONIC OBSTRUCTIVE PULMONARY DISEASE W (ACUTE) EXACERBATION Status: Chronic - Problem List Review Problem List Initiated/Reviewed/Updated: Yes - Assessment Assessment:: 1. COPD exacerbation 2. hypoxemia - Plan Plan:: 1. continue zithromax 500mg IV 2. hold solumedrol 3. continue duoneb treatments Q6 hours and PRN 4. wean O2 to room air as tolerated
== END 2017-01-18 13:00 | disposition home or self-care (01) | DRG 190 ==
LOC: KA.DI 09:54 → KA.MS 12:20 → UNDODISIN 12:20
PROVIDERS: ADMIT Physician Assistant; ATTEND Physician Assistant Medical
DX: J44.0 Chronic obstructive pulmonary disease with (acute) lower respiratory infection (principal); J18.9 Pneumonia, unspecified organism; J44.1 Chronic obstructive pulmonary disease with (acute) exacerbation; E87.6 Hypokalemia; E11.9 Type 2 diabetes mellitus without complications; K21.9 Gastro-esophageal reflux disease without esophagitis; E78.5 Hyperlipidemia, unspecified; E03.9 Hypothyroidism, unspecified; M81.0 Age-related osteoporosis without current pathological fracture; Z88.0 Allergy status to penicillin; Z88.8 Allergy status to other drugs, medicaments and biological substances; Z87.891 Personal history of nicotine dependence; Z99.81 Dependence on supplemental oxygen; Z79.899 Other long term (current) drug therapy
CPT/HCPCS: 36415; 71020; 80048; 82962; 83880; 85025; 87040; 87070; 87077; 87186; 87205; A9270-GY; J0456; J0696; J2930; J7030; J7050

== ENCOUNTER 2017-02-17 08:12 | Day surgery (SDC) | payer OTHER, MEDICARE ==
[2017-02-17] MEDS ORDERED: Sodium Chloride 0.9% 5 ML Syringe FLUSH PRN (08:15)
[2017-02-17] MEDS ORDERED: Tobramycin 0.3% Ophth Drops 5 ML Bottle EYELF SCH (08:15)
[2017-02-17] MEDS: Cyclopentolate 1% Opth Soln 2 ML Bottle EYELF SCH ×3 (08:46→09:29)
[2017-02-17] MEDS: Phenylephrine 10% Ophth Soln 5 ML Bot EYELF SCH ×3 (09:07→09:40)
[2017-02-17] MEDS ORDERED: Sodium Chloride 0.9% 1,000 ML IV SCH (09:10)
[2017-02-17] MEDS ORDERED: Balanced Salt Solution Ophth Irrig 15 ML Bottle EYELF ONE (10:36)
[2017-02-17] MEDS ORDERED: Balanced Salt Solution Plus Ophth Irrig 500 ML Bottle IOCULAR ONE (10:36)
[2017-02-17] MEDS ORDERED: Water For Irrigation,Sterile 1,500 ML Container IRR ONE (10:36)
[2017-02-17] MEDS ORDERED: Tetracaine 0.5% 2 ML Bottle EYEBOTH ONE (10:36)
[2017-02-17] MEDS ORDERED: Carbachol 0.01% Intraocular 1.5 ML Vial EYELF ONE (10:37)
[2017-02-17] MEDS ORDERED: Lidocaine 2% with EPINEPHrine 1:100,000 20 ML MDV INJECT ONE (10:37)
[2017-02-17] MEDS ORDERED: Dexamethasone/Neomycin/Polymyxin B Ophth Oint 3.5 GM Tube EYELF ONE (10:37)
[2017-02-17] MEDS ORDERED: EPINEPHrine 1:1000 1 MG/ML SDV ONE (10:37)
[2017-02-17] MEDS ORDERED: Lidocaine 1% 10 ML MDV INJECT ONE (10:38)
[2017-02-17] MEDS ORDERED: Hyaluronate Sodium 1% 0.85 ML Syringe IOCULAR ONE (10:38)
[2017-02-17 11:04] VITALS: BP 139/33
--- NOTE | 2017-02-17 13:14 | PROC ---
DATE OF PROCEDURE: PHYSICIAN: Villa Ac MD PRE-PROCEDURE DIAGNOSIS: Cataract, left eye. POST-PROCEDURE DIAGNOSIS: Cataract, left eye. PROCEDURE PERFORMED: Phacoemulsification with posterior chamber lens insertion, left eye. FINDINGS: The patient was taken to the operating room where appropriate anesthesia, sedation and monitoring were provided. A retrobulbar block was given on the left side. The eye was massaged and was found to be appropriately soft. The eye and eyelids were then prepped and draped in the usual sterile manner. A lid speculum was placed. A micro sharp blade was used to enter the anterior chamber inside the limbus inferior-temporally. Xylocaine was irrigated into the eye at this site. Healon was irrigated into the eye through this site. Then using a 2.85 mm corneal blade an entry was made into the anterior chamber just inside the limbus temporally. Healon was again irrigated into the eye. Then using a cystitome, the anterior capsulorrhexis was created. The lens nucleus was hydrodissected using a 27 gauge cannula and balanced salt solution. The phacoemulsification unit was introduced through the temporal site and the Janusz spatula through the inferior temporal site. In so doing, the lens nucleus was phacoemulsified. The cortical fragments of the lens were removed using the irrigation aspiration unit. The posterior capsule was polished. Healon was irrigated into the eye. The posterior chamber lens was inserted and rotated into position inside the capsular bag. The Healon was irrigated out of the eye. Miostat was irrigated into the eye and the pupil rounded nicely. A single interrupted 10-0 Nylon suture was placed through the temporal corneal incision site. Balanced salt solution was irrigated into the eye. The wound was tested and found to be tight. Maxitrol ointment was placed into the patient's left eye. The eyelids were closed and an eye patch and hopkins shield were placed. The patient left the operating room in good condition. /[id number]/MODL
== END 2017-02-17 11:32 | disposition home or self-care (01) ==
LOC: KA.SDS 08:12
PROVIDERS: ATTEND Ophthalmology
DX: H26.9 Unspecified cataract (principal); J44.1 Chronic obstructive pulmonary disease with (acute) exacerbation; E11.9 Type 2 diabetes mellitus without complications; K21.9 Gastro-esophageal reflux disease without esophagitis; E78.5 Hyperlipidemia, unspecified; E87.6 Hypokalemia; Z88.1 Allergy status to other antibiotic agents; E03.9 Hypothyroidism, unspecified; Z88.0 Allergy status to penicillin; Z91.012 Allergy to eggs; Z98.890 Other specified postprocedural states; Z79.899 Other long term (current) drug therapy; Z79.84 Long term (current) use of oral hypoglycemic drugs; Z87.891 Personal history of nicotine dependence
CPT/HCPCS: 66984; 82962; A9270; C1780; J0171; J7030

== ENCOUNTER 2018-08-04 15:55 | Emergency (ER) | payer OTHER, MEDICARE ==
[2018-08-04] MEDS: Succinylcholine 200 MG/10 ML MDV ONE (16:51)
--- NOTE | 2018-08-04 16:53 | EDM.PDOC ---
ED HPI GENERAL MEDICAL PROBLEM - General Chief Complaint: CPR in Progress Stated Complaint: UNRESPONSIVE Time Seen by Provider: 08/04/18 16:29 Source of Information: Reports: EMS, EMS Notes Reviewed, Family () - History of Present Illness INITIAL COMMENTS - FREE TEXT/NARRATIVE: Patient is a 58-year-old female who was brought to the emergency department via EMS in active CODE STATUS. Per , patient walked from her house to the car in the driveway and upon sitting in the car passed out. states that did not complain of chest pain, headache, or nausea prior to becoming unconscious. He called 911 and when EMS arrived and assessed patient, She was found to be in asystole with no spontaneous respirations. Patient was intubated in the field with a Cory tube and transported to the ER. Upon presentation to the emergency department Morro compression device was applied, ventilation via Ambu bag was difficult, and Cory tube was exchanged for 7.5 ENT. Vocal cords were assessed by glide scope visualization. Ambu bag ventilation persisted to be difficult. Limited airflow was noted. Nurses were unable to get IV access during this time. Patient's skin became mottled, and extreme facial edema was evident. Asystole persisted during this period. Decision was made so Code was called at 1611. Tracheal deviation was noted following discontinuation of Morro compression device. Tension pneumothorax suspected based on extensive COPD condition. was available for discussion and comfort measure. Onset: Today - Related Data Allergies Allergy/AdvReac Type Severity Reaction Status Date / Time codeine Allergy Tachycardia Verified 02/17/17 09:04 egg Allergy Vomiting Verified 02/17/17 09:04 levofloxacin [From Levaquin] Allergy Anaphylactic Verified 02/17/17 09:04 Shock Penicillins Allergy Other Verified 02/17/17 09:04 Home Meds: Home Meds Albuterol Sulfate [Proair Hfa] 2 puff INH Q4H PRN 10/17/16 [History] Biotin 5,000 mcg PO DAILY 10/17/16 [History] Budesonide/Formoterol Fumarate [Symbicort 80-4.5 Mcg Inhaler] 2 puff INH BID 01/01 [History] Calcium Carbonate/Vitamin D3 [Calcium 600 + Vit D Tablet] 3 each PO DAILY [History] Cetirizine [ZyrTEC] 10 mg PO DAILY 10/17/16 [History] Folic Acid/Multivit-Min/Lutein [Centrum Silver Chewable Tablet] 2 each PO DAILY 10/17/16 [History] Furosemide [Lasix] 20 mg PO DAILY 10/17/16 [History] Ipratropium/Albuterol Sulfate [Iprat-Albut 0.5-3(2.5) MG/3 ML] 1 vial INH Q4H PRN 10/17/16 [History] Levothyroxine 112 mcg PO ASDIRECTED 10/17/16 [History] Levothyroxine Sodium [Synthroid] 125 mcg PO ASDIRECTED 10/17/16 [History] MV,Ca,Min/FA/Herbal No.157 [Estroven Max Strength Caplet] 400 mcg PO DAILY 10/17 [History] Omeprazole 40 mg PO BID 10/17/16 [History] Potassium Chloride 2 tab PO BID 10/17/16 [History] Ranitidine [Zantac] 150 mg PO BEDTIME PRN 10/17/16 [History] Tiotropium [Spiriva HandiHaler] 18 mcg INH DAILY 10/17/16 [History] Vitamin B Complex 1 each PO BID 10/17/16 [History] metFORMIN HCl [Metformin HCl] 500 mg PO BID 10/17/16 [History] Past Medical History HEENT History: Reports: Allergic Rhinitis, Cataract, Impaired Vision Cardiovascular History: Reports: None Respiratory History: Reports: Bronchitis, Recurrent, COPD Genitourinary History: Reports: None Musculoskeletal History: Reports: Arthritis Endocrine/Metabolic History: Reports: Diabetes, Type II, Hypothyroidism Dermatologic History: Reports: Decubitus Ulcer - Infectious Disease History Infectious Disease History: Reports: Chicken Pox, Measles, Mumps - Past Surgical History Cardiovascular Surgical History: Reports: Other (See Below) Female Surgical History: Reports: Breast Biopsy Musculoskeletal Surgical History: Reports: Arthroscopic Knee Social & Family History - Family History Family Medical History: Noncontributory - Caffeine Use Caffeine Use: Reports: Tea ED ROS GENERAL - Review of Systems Review Of Systems: See Below Constitutional: Reports: No Symptoms HEENT: Reports: No Symptoms Respiratory: Reports: Shortness of Breath (Chronic) Cardiovascular: Reports: No Symptoms. Denies: Chest Pain Endocrine: Reports: No Symptoms GI/Abdominal: Reports: No Symptoms : Reports: No Symptoms Musculoskeletal: Reports: No Symptoms Skin: Reports: No Symptoms Neurological: Reports: No Symptoms Psychiatric: Reports: No Symptoms Hematologic/Lymphatic: Reports: No Symptoms Immunologic: Reports: No Symptoms ED EXAM, CPR - Physical Exam Exam: See Below General Appearance: Obtunded Eye Exam: Bilateral Eye: PERRL (Fixed and pinpoint) Throat/Mouth: Normal Inspection, Normal Oropharynx, No Airway Compromise Head: Atraumatic, Normocephalic Cardiovascular: CPR In Progress Neurological: Unresponsive Departure - Departure Time of Disposition: 16:11 Disposition: 20 Preliminary Cause of *Q: Respiratory Failure Clinical Impression: COPD with exacerbation, Respiratory arrest - Discharge Information Referrals: Kristy Jones MD [Primary Care Provider] - Forms: ED Department Discharge - Assessment/Plan Assessment::
== END 2018-08-04 16:11 | disposition expired ==
LOC: KA.ED 15:55
DX: R09.2 Respiratory arrest (principal); J44.1 Chronic obstructive pulmonary disease with (acute) exacerbation; Z79.84 Long term (current) use of oral hypoglycemic drugs; E11.9 Type 2 diabetes mellitus without complications; E03.9 Hypothyroidism, unspecified
CPT/HCPCS: 92950; 96374; 99285